=== PATIENT | female | born 1955 | race Caucasian/White ===

== ENCOUNTER 2024-07-14 12:22 | Emergency (ER) | payer MEDICARE, MEDICAID ==
[~2024-07-14] VITALS: Ht 165.1 cm; Wt 62.3 kg
[~2024-07-14 12:22] MED LIST: ALBU0.63 NEB; AMLO-888 PO; ASPI-1071 PO; ATOR20TA66 PO; IPRA3AMP31 NEB; LOSA-416 PO; METO-539 PO; NITR0.4T51 SL
[2024-07-14 13:33] LABS: BASOPHILS % (AUTO) 0.9 % (0-1); EOSINOPHILS % (AUTO) 0.5 % (0-6); HEMATOCRIT 39.1 % (35.0-45.0); HEMOGLOBIN 12.8 g/dl (12.0-16.0); LYMPHOCYTES # (AUTO) 1.5 X10'3 (1.1-4.8); LYMPHOCYTES % (AUTO) 28.1 % (21-51); MEAN CORPUSCULAR HEMOGLOBIN 28.4 PG (27.0-31.0); MEAN CORPUSCULAR HGB CONC 32.6 g/dL (33.0-36.5); MEAN PLATELET VOLUME 7.2 FL (7.4-10.4); MONOCYTES # (AUTO) 0.4 X10'3 (0-0.9); NEUTROPHILS # (AUTO) 3.4 X10'3 (1.8-7.7); NEUTROPHILS % (AUTO) 63.5 % (42-75); PLATELET COUNT 370 X10'3 (140-440); RED BLOOD COUNT 4.49 X10'6 (4.20-5.60); RED CELL DISTRIBUTION WIDTH 18.6 % (11.5-14.5); WHITE BLOOD COUNT 5.4 X10'3 (4.5-11.0)
[2024-07-14 14:28] LABS: PLATELET ESTIMATE NORMAL
[2024-07-14 14:29] LABS: ANISOCYTOSIS 2+
[2024-07-14 15:57] VITALS: PULSE 67; PULSE 68; PULSE 92; RESP 20; RESP 24; O2SAT 92; O2SAT 95; O2SAT 96
[2024-07-14] MEDS: ipratropium/albuterol 3ml nebule NEB ONE (16:05)
[2024-07-14 16:11] LABS: CALCIUM 8.1 MG/DL (8.5-10.1); eCRCL 27 ML/MIN; eGFR 28 ML/MIN
[2024-07-14 16:35] LABS: ALBUMIN 1.2 G/DL (3.4-5.0); BLOOD UREA NITROGEN 29 MG/DL (7-18); BUN/CREATININE RATIO 16.1 (10.0-20.0); GLUCOSE 84 MG/DL (70-104); POTASSIUM 3.7 MMOL/L (3.5-5.1); SODIUM 142 MMOL/L (135-145); TOTAL CARBON DIOXIDE 31.7 MMOL/L (24-32)
[2024-07-14 16:36] LABS: ANION GAP 5 (8-16); CHLORIDE 105 MMOL/L (99-107)
[2024-07-14 16:56] LABS: PRO BRAIN NATRIURETIC PEPTIDE > 30000 PG/ML (0-125)
[2024-07-14] MEDS ORDERED: HYDR-3965 PO (17:01)
[2024-07-14] MEDS ORDERED: PRED50TA PO (17:01)
[2024-07-14] MEDS: HYDROcodone/acetaminophen 5mg/325mg tablet PO ONE (17:20)
[2024-07-14 17:39] VITALS: BP 140/99; PULSE 60; RESP 20; TEMP 97; O2SAT 97
== END 2024-07-14 18:25 | disposition home or self-care (01) ==
LOC: ER 12:23
DX: J06.9 Acute upper respiratory infection, unspecified (principal); I10 Essential (primary) hypertension; J44.9 Chronic obstructive pulmonary disease, unspecified; G89.29 Other chronic pain; M54.9 Dorsalgia, unspecified; Z88.6 Allergy status to analgesic agent; Z88.8 Allergy status to other drugs, medicaments and biological substances; Z79.82 Long term (current) use of aspirin; Z79.899 Other long term (current) drug therapy; Z20.822 Contact with and (suspected) exposure to COVID-19
CPT/HCPCS: 36415; 71045; 80048; 83605; 83880; 85008; 85025; 87040; 87502; 87503; 87811; 93005; 94640; 94760; 99285